=== PATIENT | female | born 1970 ===

== ENCOUNTER → 2016-09-26 | Outpatient (CLI) | payer OTHER ==
--- NOTE | ~2016-09-26 | MY11 ---
[facility] RADIOLOGY TEXT RESULTS PATIENT: LES HURD LOCATION: [facility] : 70 UNIT #: [id number] AGE: [address]: Charmaine Dominguez MD SEX: F ORDER DR: [id number] [place] [id number] O MR#: [id number] Acc #: [id number] NAME: LES HURD : 1970 SEX: F STUDY DATE/TIME: 09/26/2016 11:21 UNIT: [facility] ROOM: STUDY DESCRIPTION: MY Mammogram Screening Dig Justin Attending Physician: Charmaine Dominguez M.D. Referring Physician: Charmaine Dominguez M.D. Ordering Physician: Charmaine Dominguez M.D. Primary Care Physician: Charmaine Dominguez M.D. MEDICAL IMAGING REPORT This report is preliminary unless electronic signature is present. EXAM Bilateral digital screening mammogram with CAD. INDICATION Breast cancer screening. 46-year-old asymptomatic female who reports maternal aunts with breast cancer. COMPARISON April 18, 2011 FINDINGS The breast tissue is heterogeneously dense, which could obscure detection of small masses. No suspicious findings are seen. IMPRESSION No mammographic evidence of malignancy. Annual clinical breast exam is recommended. Given the patient's breast density, she would likely benefit from annual screening breast tomosynthesis given increased sensitivity and diminished false positive rate as compared to conventional digital mammography. Patients over the age of 40 are entered into a reminder system with target due date for the next mammogram. A result letter will be sent to the patient. BIRADS: 1, negative Dictated by... Julian Lujan M.D. [facility] RADIOLOGY TEXT RESULTS PATIENT: LES HURD LOCATION: [facility] : 70 UNIT #: [id number] AGE: [address]: Charmaine Dominguez MD SEX: F ORDER DR: THIS IS AN ELECTRONICALLY VERIFIED REPORT Julian Lujan M.D. at 09/26/2016 5:36 PM TESS/ramona TD: 09/26/2016 17:09 JOB #: [id number] MEDICAL IMAGING REPORT Page 1 of 1
== END | disposition home or self-care (01) ==
LOC: SMAM 10:33
DX: Z12.31 Encounter for screening mammogram for malignant neoplasm of breast (principal); Z80.3 Family history of malignant neoplasm of breast
CPT/HCPCS: G0202